=== PATIENT | female | born 1990 | race Hispanic/Latino ===

== ENCOUNTER 2019-11-27 09:47 | Outpatient (CLI) | payer BC, OTHER ==
[2019-11-28 13:16] LABS: SARS-CoV-2 MS2 Positive; SARS-CoV-2 N Gene Negative; SARS-CoV-2 S Gene Negative; SARS-CoV-2 orf1ab Negative
== END 2019-11-27 09:48 | disposition home or self-care (01) ==
LOC: SCSLAB 09:47
PROVIDERS: ATTEND Obstetrics & Gynecology
DX: Z01.812 Encounter for preprocedural laboratory examination (principal); Z11.59 Encounter for screening for other viral diseases
CPT/HCPCS: 87635; U0003

== ENCOUNTER 2019-12-01 05:30 | Inpatient (IN) | payer BC, OTHER ==
[2019-12-01 05:58] VITALS: BMI 25.4
[2019-12-01] MEDS: Lactated Ringer's 1,000 ML IV SCH ×2 (06:10→09:17)
[2019-12-01] MEDS ORDERED: Acetaminophen 500 MG TAB PO PRN (06:29)
[2019-12-01] MEDS ORDERED: Promethazine HCl 25 MG/ML VIAL IM PRN ×2 (06:29→07:41)
[2019-12-01] MEDS ORDERED: Ondansetron PF 4 MG/2 ML Vial IVP PRN ×3 (06:29→13:29)
[2019-12-01] MEDS ORDERED: hydrALAZINE 20 MG/ML VIAL SLOW IVP PRN ×2 (06:29→13:29)
[2019-12-01] MEDS ORDERED: Butorphanol Tartrate 1 MG/ML VIAL SLOW IVP PRN (06:29)
[2019-12-01] MEDS ORDERED: Ibuprofen 800 MG TAB PO PRN (06:31)
[2019-12-01] MEDS ORDERED: HYDROcodone/Acetaminophen 5/325 mg Tablet PO PRN ×2 (06:31)
[2019-12-01] MEDS ORDERED: Misoprostol 200 MCG TAB PR PRN (06:31)
[2019-12-01] MEDS ORDERED: Methylergonovine 0.2 MG/ML VIAL IM PRN (06:31)
[2019-12-01] MEDS ORDERED: Lidocaine 1% (PF) 30 ML VIAL SC PRN (06:31)
[2019-12-01] MEDS ORDERED: NS / Oxytocin 40 units/1000ml 1,000 ML IV PRN (06:31)
[2019-12-01] MEDS ORDERED: NS w/ Oxytocin 10 units 500 ML ONE (06:33)
[2019-12-01] MEDS ORDERED: NS w/ Oxytocin 10 units 500 ML IV SCH (06:45)
[2019-12-01 06:59] LABS: Mean Corpuscular HGB CONC 34.7 g/dL (32.0-36.0); Mean Corpuscular Volume 89.4 fL (78.0-98.0); Mean Platelet Volume 10.1 fL (7.4-10.4); Platelet Count 161 thou/uL (130-400); RBC Distribution Width 12.9 % (11.5-14.5); White Blood Cell (WBC) Count 10.5 thou/uL (4.8-10.8)
[2019-12-01] MEDS ORDERED: Fentanyl 4 mcg/Bup 0.1% Cadd 100 ML ONE (07:26)
[2019-12-01 07:34] LABS: HBSAg Index 0.53 S/CO (0-0.99); Hep B Surf Ag Non-Reactive S/CO (NonReactive); Syphilis Antibody Nonreactive (Nonreactive); Syphilis Antibody Index 0.02 S/CO (<1.00 Non-Reactive)
[2019-12-01] MEDS ORDERED: diphenhydrAMINE 50 MG/ML VIAL IVP PRN (07:41)
[2019-12-01] MEDS ORDERED: Acetaminophen 325 MG TAB PO PRN (07:41)
[2019-12-01] MEDS ORDERED: Naloxone HCl 0.4 mg/ml Vial IVP PRN ×2 (07:41)
[2019-12-01] MEDS ORDERED: EPHEDRINE 25 MG/5 ML SYRINGE SLOW IVP PRN (07:41)
[2019-12-01] MEDS ORDERED: Lactated Ringer's 500 ML IV PRN (07:41)
[2019-12-01] MEDS ORDERED: Communication Order-Pharmacy FS PRN (07:45)
[2019-12-01] MEDS ORDERED: Fentanyl 4 mcg/Bupivacaine 0.1% Cassette 100 ML EPIDURAL SCH (07:45)
[2019-12-01] MEDS ORDERED: Misoprostol 200 MCG TAB VAG PRN (13:29)
[2019-12-01] MEDS ORDERED: Benzocaine-Menthol 82.5 ML CAN TOP PRN (13:29)
[2019-12-01] MEDS ORDERED: Milk Of Magnesia 30 ML UDCUP PO PRN (13:29)
[2019-12-01] MEDS ORDERED: Bisacodyl 10 MG SUPP PR PRN (13:29)
[2019-12-01] MEDS ORDERED: Preparation H Ointment 28 GM TUBE PR PRN (13:29)
[2019-12-01] MEDS ORDERED: diphenhydrAMINE 25 MG CAP PO PRN (13:29)
[2019-12-01] MEDS ORDERED: Lanolin Ointment 7 GM TUBE TOP PRN (13:29)
[2019-12-01] MEDS ORDERED: NS / Oxytocin 40 units/1000ml 1,000 ML IV SCH (13:30)
[2019-12-01] MEDS ORDERED: Acetaminophen/Codeine 30-300mg Tablet PO PRN ×2 (23:18)
[2019-12-01] MEDS ORDERED: Zolpidem Tartrate 5 MG TAB PO PRN (23:18)
[2019-12-02] MEDS: Docusate Calcium (SURFAK) 240 MG CAP PO SCH ×2 (00:03→10:19)
[2019-12-02] MEDS: Ibuprofen 800 MG TAB PO SCH ×3 (00:03→14:49)
[2019-12-02] MEDS: Ferrous Sulfate 325 MG TAB PO SCH ×2 (00:03→10:19)
[2019-12-02 05:42] LABS: Hemoglobin 11.3 g/dL (12.0-16.0)
[2019-12-02] MEDS ORDERED: Adacel (T-DAP) 0.5 ML SYRINGE IM ONE (09:00)
[2019-12-02] MEDS ORDERED: Prenatal Vitamin 1 TAB PO SCH (09:00)
[2019-12-02 14:43] VITALS: BP 104/63; TEMP 98.4
== END 2019-12-02 16:00 | disposition home or self-care (01) | DRG 807 ==
LOC: L&D 05:39 → 3SW 22:43
PROVIDERS: ADMIT Obstetrics & Gynecology; ATTEND Obstetrics & Gynecology
PROC: 10E0XZZ Delivery of Products of Conception, External Approach (ICD-10-PCS; principal; 2019-12-01)
PROC: 10907ZC Drainage of Amniotic Fluid, Therapeutic from Products of Conception, Via Natural or Artificial Opening (ICD-10-PCS; 2019-12-01)
PROC: 3E0P7VZ Introduction of Hormone into Female Reproductive, Via Natural or Artificial Opening (ICD-10-PCS; 2019-12-01)
PROC: 3E033VJ Introduction of Other Hormone into Peripheral Vein, Percutaneous Approach (ICD-10-PCS; 2019-12-01)
DX: O80 Encounter for full-term uncomplicated delivery (principal); Z37.0 Single live birth; Z3A.39 39 weeks gestation of pregnancy; Z90.49 Acquired absence of other specified parts of digestive tract
CPT/HCPCS: 36415; 51702; 85014; 85018; 85027; 86780; 86850; 86900; 86901; 87340; J2590